=== PATIENT | male | born 1950 | race Caucasian/White ===

== ENCOUNTER 2017-07-06 08:59 | Day surgery (SDC) | payer OTHER ==
[2017-07-06 09:19] VITALS: BMI 29.8
--- NOTE | 2017-07-06 09:39 | PDOC ---
Attending Attestation - HPI HPI: 07/06/17 09:51 Patient is a 66 year old male with PMHx of, who presents to the ED with acute onset of lower abdominal pain. Patient states he has had episodes like this in the past but it was never this bad. His states his pain is non-radiating. He states he feels nauseous but says he did not vomit. He never saw a GI doctor. And states that he never had a colonoscopy before. He states his last bowel movement was yesterday and was normal. He denies recent travel. He denies recent fever, chills, back pain. He denies recent dysuria, urgency, frequency. He denies recent vomit, diarrhea, or constipation. - Physicial Exam PE: 07/06/17 09:52 GENERAL: Awake, alert, and fully oriented, in no acute distress HEAD: No signs of trauma EYES: PERRLA, EOMI, sclera anicteric, conjunctiva clear ENT: Auricles normal inspection, hearing grossly normal, nares patent, oropharynx clear without exudates. Moist mucosa NECK: Normal ROM, supple, no lymphadenopathy, JVD, or masses LUNGS: Breath sounds equal, clear to auscultation bilaterally. No wheezes, and no crackles HEART: Tachycardic. no murmurs, rubs or gallops ABDOMEN: Soft, RLQ, LLQ, suprapublic, periumbilical tenderness. No guarding, no rebound. No masses EXTREMITIES: No lower extremity edema.Normal range of motion, No clubbing or cyanosis. No cords, erythema, or tenderness NEUROLOGICAL: Cranial nerves II through XII grossly intact. Normal speech, normal gait SKIN: Warm, Dry, normal turgor, no rashes or lesions noted. <Kalina Boone - Last Filed: 07/06/17 09:51> - Resident Resident Name: Jovanny Mcclellan - ED Attending Attestation I have performed the following: I have examined & evaluated the patient, The case was reviewed & discussed with the resident, I agree w/resident's findings & plan, Exceptions are as noted - Medical Decision Making 07/06/17 09:39 I, Dr. Scarlett Albarran, DO, attest that this document has been prepared under my direction and personally reviewed by me in its entirety. I further attest, that it accurately reflects all work, treatment, procedures and medical decision -making performed by me. 07/06/17 10:24 a/p: 66yo male with lower abd pain -poss colitis vs diverticulitis vs uti vs obstruction -will check labs, ua, ct abd/pelvis -ivf hydration -pain and nausea control -will monitor and reassess 07/06/17 15:33 inguinal hernia palpated and easily reduced when laying flat case discussed with DR. Corcoran who will be down to eval the patient. 07/06/17 16:41 dr. corcoran accepts the patient to service. pending OR <Scarlett Albarran - Last Filed: 07/06/17 16:41>
[2017-07-06] MEDS ORDERED: SODIUM CHLORIDE 0.9% 1000 ML INFUS.BAG IV ONE ×2 (09:41→15:25)
[2017-07-06] MEDS ORDERED: morphine CARPU-JECT 4 MG/1 ML DISP.SYRIN IVPUSH ONE ×2 (09:41→13:43)
[2017-07-06] MEDS ORDERED: ONDANSETRON 4 MG/2 ML VIAL IVPUSH ONE (09:41)
--- NOTE | 2017-07-06 10:24 | PDOC ---
History of Present Illness <Scarlett Albarran - Last Filed: 07/06/17 16:51> - History of Present Illness Initial Comments: Patient is a 66 year old male with no PMHx presenting to the ED with lower abdominal pain. He states that he has had these pains in the past with the initial episode approximately 1.5 years prior and presenting every month or so but this episode is worse. He was never evaluated by a GI physician or received a colonoscopy. Describes the pain as lower pelvic bilaterally and non radiating without prandial relationship. He did have nausea but says he did not vomit. He denies recent travel, fever, chills, back pain, urinary symptoms, vomitting, diarrhea, or constipation. 07/06/17 12:08 <Jovanny Mcclellan - Last Filed: 07/06/17 18:35> - General Chief Complaint: Pain Stated Complaint: ABD PAIN Time Seen by Provider: 07/06/17 09:29 Past History <Scarlett Albarran - Last Filed: 07/06/17 16:51> - Past Medical History COPD: No Disorders: Yes (CYST KIDNEY) HTN: Yes - Suicide/Smoking/Psychosocial Hx Smoking History: Former smoker Have you smoked in the past 12 months: No If you are a former smoker, when did you quit?: 21YRS AGO Information on smoking cessation initiated: No Hx Alcohol Use: Yes (RARE) Drug/Substance Use Hx: No Substance Use Type: Alcohol <Jovanny Mcclellan - Last Filed: 07/06/17 18:35> - Past Medical History Allergies/Adverse Reactions: Allergies Allergy/AdvReac Type Severity Reaction Status Date / Time No Known Drug Allergies Allergy Verified 07/06/17 09:14 Home Medications: Ambulatory Orders NK [No Known Home Medication] 02/26/15 Review of Systems - Review of Systems Constitutional: No: Chills, Fever HEENTM: No: Blurred Vision Respiratory: No: Cough, Shortness of Breath, Wheezing, Productive cough Cardiac (ROS): No: Chest Pain ABD/GI: No: Constipated, Diarrhea, Nausea, Vomiting : No: Dysuria, Discharge, Hematuria Musculoskeletal: No: Back Pain Integumentary: No: Change in Color, Erythema, Flushing, Lesions, Lumps Neurological: No: Headache, Numbness, Paresthesia, Seizure <VyTimjamison - Last Filed: 07/06/17 18:35> *Physical Exam - Vital Signs Last Vital Signs Temp Pulse Resp BP Pulse Ox 98.2 F 92 H 18 159/107 100 07/06/17 09:15 07/06/17 09:15 07/06/17 09:15 07/06/17 09:15 07/06/17 09:15 <Scarlett Albarran - Last Filed: 07/06/17 16:51> - Vital Signs Last Vital Signs Temp Pulse Resp BP Pulse Ox 98.2 F 92 H 18 159/107 100 07/06/17 09:15 07/06/17 09:15 07/06/17 09:15 07/06/17 09:15 07/06/17 09:15 - Physical Exam General Appearance: Yes: Nourished, Appropriately Dressed, Apparent Distress, Mild Distress HEENT: positive: EOMI, RENY, Normal ENT Inspection, Normal Voice Neck: positive: Trachea midline, Normal Thyroid, Supple. negative: Tender, Rigid Respiratory/Chest: positive: Lungs Clear, Normal Breath Sounds. negative: Chest Tender, Respiratory Distress Cardiovascular: positive: Regular Rhythm, Regular Rate, S1, S2. negative: Edema , JVD, Murmur Gastrointestinal/Abdominal: positive: Normal Bowel Sounds, Tender (diffuse tenderness across lower abdomen ), Flat, Soft. 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 NML intact, Fully Oriented, Alert, Normal Mood/ Affect, Normal Response, Motor Strength 5/5 <Jovanny Mcclellan - Last Filed: 07/06/17 18:35> ED Treatment Course - LABORATORY CBC & Chemistry Diagram: 07/06/17 10:27 07/06/17 10:10 - ADDITIONAL ORDERS Additional order review: Laboratory Results 07/06/17 07/06/17 07/06/17 12:29 10:10 10:10 PT with INR INR PTT (Actin FS) Sodium Potassium Chloride Carbon Dioxide Anion Gap BUN Creatinine Creat Clearance w eGFR Random Glucose Lactic Acid 1.1 Calcium Magnesium Cancelled Total Bilirubin AST ALT Alkaline Phosphatase Total Protein Albumin Lipase Cancelled Urine Color Straw Urine Appearance Clear Urine pH 7.0 Ur Specific [place] 1.010 Urine Protein Negative Urine Glucose (UA) Negative Urine Ketones Negative Urine Blood 1+ H Urine Nitrite Negative Urine Bilirubin Negative Urine Urobilinogen Negative Urine Mucus Rare 07/06/17 07/06/17 07/06/17 10:10 10:10 10:10 PT with INR 11.20 INR 0.99 PTT (Actin FS) 35.7 H Sodium 141 Potassium 4.3 Chloride 105 Carbon Dioxide 31 Anion Gap 5 L BUN 15 Creatinine 0.9 Creat Clearance w eGFR > 60 Random Glucose 109 H Lactic Acid Calcium 8.9 Magnesium 2.1 Total Bilirubin 0.7 AST 29 ALT 29 Alkaline Phosphatase 61 Total Protein 7.2 Albumin 3.9 Lipase 83 Urine Color Urine Appearance Urine pH Ur Specific [place] Urine Protein Urine Glucose (UA) Urine Ketones Urine Blood Urine Nitrite Urine Bilirubin Urine Urobilinogen Urine Mucus 07/06/17 07/06/17 10:27 10:10 RBC 6.49 H Cancelled MCV 66.0 L Cancelled MCHC 31.0 L Cancelled RDW 16.5 H Cancelled MPV 8.7 Cancelled Neutrophils % 87.5 H Cancelled Lymphocytes % 7.5 L Cancelled Monocytes % 4.1 Cancelled Eosinophils % 0.5 Cancelled Basophils % 0.4 Cancelled - RADIOLOGY Radiology Studies Ordered: Category Date Time Status ABDOMEN & PELVIS CT WITH CONTR [CT] Stat CT Scan 07/06/17 09:40 Completed - Medications Given in the ED: ED Medications Discontinued Medications Generic Name Dose Route Start Last Admin Trade Name Freq PRN Reason Stop Dose Admin Morphine Sulfate 4 mg 07/06/17 09:41 07/06/17 10:43 Morphine Injection - IVPUSH 07/06/17 09:42 4 mg ONCE ONE Administration Morphine Sulfate 4 mg 07/06/17 13:43 07/06/17 13:44 Morphine Injection - IVPUSH 07/06/17 13:44 4 mg ONCE ONE Administration Ondansetron HCl 4 mg 07/06/17 09:41 07/06/17 10:44 Zofran Injection IVPUSH 07/06/17 09:42 4 mg ONCE ONE Administration Sodium Chloride 1,000 ml 07/06/17 09:41 07/06/17 10:44 Normal Saline - IV 07/06/17 09:42 1,000 ml ONCE ONE Administration Sodium Chloride 1,000 ml 07/06/17 15:25 07/06/17 16:43 Normal Saline - IV 07/06/17 15:26 1,000 ml ONCE ONE Administration <Scarlett Albarran - Last Filed: 07/06/17 16:51> - LABORATORY CBC & Chemistry Diagram: 07/06/17 10:27 07/06/17 10:10 - ADDITIONAL ORDERS Additional order review: Laboratory Results 07/06/17 10:10 Magnesium Cancelled Lipase Cancelled <Jovanny Mcclellan - Last Filed: 07/06/17 18:35> Medical Decision Making - Medical Decision Making 66 year old male presenting with acute on chronic lower abdominal pain diffusely. Primary concern for diverticulosis vs. rectal malignancy. CT abdomen , pelvis demonstrating SBO with inguinal hernia as the lead point. Patient given morphine 4 x 2 with good relief of pain. Labs mostly WNL with the exception of a slight left shift and shift leukocytosis. We placed the patient in trendelenberg and reduced the inguinal hernia successfully. Dr. Corcoran evaluated that patient and agreed to take the patient to the OR today for surgical fixation of the hernia. patient signed out to Dr. Corcoran's care. 07/06/17 17:34 <Jovanny Mcclellan - Last Filed: 07/06/17 18:35> *DC/Admit/Observation/Transfer - Discharge Dispostion Admit: Yes <Scarlett Albarran - Last Filed: 07/06/17 16:51> - Discharge Dispostion Admit: Yes <Jovanny Mcclellan - Last Filed: 07/06/17 18:35> Diagnosis at time of Disposition: Partial small bowel obstruction Inguinal hernia Qualifiers: Obstruction and gangrene presence: with obstruction but without gangrene Laterality: unilateral Recurrence: not specified as recurrent Qualified Code(s) : K40.30 - Unilateral inguinal hernia, with obstruction, without gangrene, not specified as recurrent - Discharge Dispostion Condition at time of disposition: Fair
[2017-07-06] MEDS ORDERED: morphine SULFATE 4 MG/ML VIAL ONE ×2 (10:29→13:46)
[2017-07-06] MEDS ORDERED: ONDANSETRON *ODT* 4 MG TABLET ONE (10:30)
[2017-07-06 10:49] LABS: ALBUMIN 3.9 g/dl (3.4-5.0); ANION GAP 5 (8-16); BILIRUBIN,TOTAL 0.7 mg/dL (0.2-1.0); CALCIUM 8.9 mg/dL (8.5-10.1); CO2 31 mmol/L (21-32); CREATININE 0.9 mg/dL (0.7-1.3); GLUCOSE,RANDOM 109 mg/dL (74-106); SGPT/ALT 29 U/L (12-78); TOT PROT 7.2 g/dl (6.4-8.2)
[2017-07-06 10:50] LABS: ALK PHOS 61 U/L (45-117)
[2017-07-06 10:50] LABS: BASOPHIL 0.4 % (0-2.0); EOSINOPHIL 0.5 % (0-4.5); MCH 20.4 pg (25.7-33.7); MEAN PLT VOLUME 8.7 fl (7.5-11.1); NEUTROPHILS 87.5 % (42.8-82.8); PLATELET COUNT 193 K/MM3 (134-434); RDW 16.5 % (11.9-15.9); WHITE BLOOD COUNT 10.3 K/mm3 (4.0-10.0)
[2017-07-06 10:53] LABS: MAGNESIUM 2.1 mg/dL (1.8-2.4); SGOT/AST 29 U/L (15-37)
[2017-07-06 11:26] LABS: INR 0.99 (0.82-1.09); PROTHROMBIN TIME (PATIENT) 11.2 SEC (9.98-11.88)
[2017-07-06 11:56] LABS: HYPOCHROMIA 1+
[2017-07-06 11:57] LABS: ANISOCYTOSIS 1+
[2017-07-06 13:42] LABS: URINE APPEARANCE CLEAR; URINE BILIRUBIN NEGATIVE (NEGATIVE); URINE BLOOD 1+ (NEGATIVE); URINE COLOR STRAW; URINE GLUCOSE (UA) NEGATIVE (NEGATIVE); URINE KETONE NEGATIVE (NEGATIVE); URINE NITRITE NEGATIVE (NEGATIVE); URINE PROTEIN NEGATIVE (NEGATIVE); URINE UROBILINOGEN NEGATIVE mg/dL (0.2-1.0)
[2017-07-06 14:16] LABS: URINE MUCUS RARE; URINE RBC 3 /hpf (0-3)
[2017-07-06] MEDS ORDERED: LACTATED RINGERS SOLUTION 1,000 ML/1,000 ML INFUS.BAG IV SCH ×2 (15:30→17:15)
[2017-07-06] MEDS ORDERED: oxyCODONE HCL 5 MG TABLET PO PRN ×3 (17:08→22:09)
[2017-07-06] MEDS ORDERED: IBUPROFEN 600 MG TABLET (FP) PO PRN (17:08)
[2017-07-06] MEDS ORDERED: ACETAMINOPHEN 325 MG TABLET (FP) PO PRN ×2 (17:08→22:09)
[2017-07-06] MEDS ORDERED: IBUPROFEN 800 MG/8 ML IJ IVPB ONE (17:15)
[2017-07-06] MEDS ORDERED: fentaNYL CITRATE 250 MCG/5 ML VIAL ONE (17:17)
[2017-07-06] MEDS ORDERED: MIDAZOLAM HCL 2 MG/2 ML SINGLE DOSE VIAL ONE (17:17)
[2017-07-06] MEDS ORDERED: LIDOCAINE HCL/PF 2% SDV 5ML VIAL ONE (17:18)
[2017-07-06] MEDS ORDERED: PROPOFOL 20 ML ONE (17:18)
[2017-07-06] MEDS ORDERED: SUCCINYLCHOLINE CHLORIDE 200 MG/10 ML VIAL ONE (17:20)
[2017-07-06] MEDS ORDERED: ROCURONIUM BROMIDE 50 MG/5 ML VIAL ONE (17:21)
--- NOTE | 2017-07-06 17:26 | HP ---
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 It has gotten more frequent and more noticeable, especially in last few months. He works overnights, and Thursday morning it began hurting quite a bit, but he was better after sleeping in the afternoon. Up all night at work, and again was hurting on Thursday, then overnight last night it was so bad this morning he could barely stand it. He considered looking for a new PMD, but decided to come to hospital instead. He has never had colonoscopy. Last normal BM was yesterday. Nausea only from the pain but no vomiting. Last po was salad at 4pm yesterday and a few grapes and water at 5am. In ER, he is afebrile with normal wbc and labs. CT showed partial SBO with mild dilation of SB and transition at left inguinal hernia with SB loop in it. After supine exam by ER after that, hernia reduced nearly spontaneously per report. His pain is much better now, and he is no longer tender. History Source: Patient Limitations to Obtaining History: No Limitations - Past Medical History Cardiovascular: Yes: HTN (not on medication) Renal/: Yes: Other (had renal cyst percutaneously drained 2 yrs ago) Dermatology: Yes: Other (lipoma on back) - Past Surgical History Past Surgical History: No: Colonoscopy Additional Past Surgical History: perc renal cyst drainage 2014; nasal septum surgery - Smoking History Smoking history: Former smoker Have you smoked in the past 12 months: No If you are a former smoker, when did you quit?: 24YRS AGO - 1ppd or less x 13 yrs - Alcohol/Substance Use Hx Alcohol Use: Yes (RARE) History of Substance Use: reports: None - Social History ADL: Independent 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 denies: Difficult Swallowing, Hearing Loss, Throat Pain Neck: denies: Swollen Glands, Tenderness Cardiovascular: denies: Chest Pain, Palpitations Respiratory: denies: Cough, Hemoptysis Gastrointestinal: reports: Abdominal Pain (with hpi), Nausea (with pain only). denies: Constipation, Diarrhea, Vomiting Genitourinary: denies: Burning, Dysuria, Frequency, Testicular Pain Musculoskeletal: denies: Back Pain, Joint Pain, Muscle Pain Integumentary: reports: Lump (lipoma of central back). denies: Rash Neurological: reports: Headache (sometimes). denies: Dizziness, Unsteady Gait Psychiatric: denies: Anxiety, Depression Physical Examination Vital Signs: Vital Signs Temperature 98.1 F 07/06/17 17:13 Pulse Rate 90 07/06/17 17:13 Respiratory Rate 20 07/06/17 17:13 Blood Pressure 140/98 07/06/17 17:13 O2 Sat by Pulse Oximetry (%) 100 07/06/17 17:13 Constitutional: Yes: Well Nourished, No Distress, Calm, Obese Eyes: Yes: Conjunctiva Clear, EOM Intact HENT: Yes: Atraumatic, Normocephalic Neck: Yes: Supple, Trachea Midline Cardiovascular: Yes: Regular Rate and Rhythm. No: Murmur Respiratory: Yes: Regular, CTA Bilaterally Gastrointestinal: Yes: Normal Bowel Sounds, Soft, Abdomen, Obese, Hernia (left inguinal). No: Distention, Tenderness ...Rectal Exam: Yes: Deferred Renal/: No: CVA Tenderness - Left, CVA Tenderness - Right Musculoskeletal: Yes: Other (~10cm lipoma of central/left back). No: Joint Stiffness, Joint Swelling Extremities: No: Cool, Cyanosis Edema: No Peripheral Pulses WNL: Yes Integumentary: No: Jaundice, Rash Neurological: Yes: Alert, Oriented Psychiatric: Yes: Alert, Oriented Labs: CBC, BMP 07/06/17 10:27 07/06/17 10:10 INR, PTT INR 0.99 (0.82-1.09) 07/06/17 10:10 Urine Test Results Urine Color Straw 07/06/17 12:29 Urine Appearance Clear 07/06/17 12:29 Urine pH 7.0 (5.0-8.0) 07/06/17 12:29 Ur Specific [place] 1.010 (1.001-1.035) 07/06/17 12:29 Urine Protein Negative (NEGATIVE) 07/06/17 12:29 Urine Glucose (UA) Negative (NEGATIVE) 07/06/17 12:29 Urine Ketones Negative (NEGATIVE) 07/06/17 12:29 Urine Blood 1+ (NEGATIVE) H 07/06/17 12:29 Urine Nitrite Negative (NEGATIVE) 07/06/17 12:29 Urine Bilirubin Negative (NEGATIVE) 07/06/17 12: Urine Mucus Rare 07/06/17 12:29 Imaging - Results Cat Scan: Report Reviewed (left inguinal hernia with small bowel loop as transition point for partial SBO with mildly dilated SB proximal and decompressed distally, small ascites in abd/pelv, no free air), Image Reviewed Problem List - Problems (1) Inguinal hernia of left side with obstruction and without gangrene Assessment/Plan: Pt had PSBO but hernia has been reduced. Recommended repair prior to discharge. Discussed with patient risks, benefits and alternatives of left inguinal hernia repair with mesh, including but not limited to bleeding, infection, injury to adjacent structures, vessels or nerves, testicular ischemia/loss, mesh infection , hernia recurrence, numbness or chronic pain, ; alternatives include delayed or no surgery - risks of this include recurrent incarceration, strangulation of hernia contents, continued pain. Patient desires to proceed with operation - will take to OR for above. Informed consent signed for same. Will admit as satellite DVT prophylaxis pain meds prn anticipate d/c when ambulating, voiding, po pain meds and tolerating po caldolor preop periop Ancef Code(s): K40.30 - UNIL INGUINAL HERNIA, W OBST, W/O GANGR, NOT SPCF RECUR (2) Hypertension Code(s): I10 - ESSENTIAL (PRIMARY) HYPERTENSION Qualifiers: Hypertension type: essential hypertension Qualified Code(s): I10 - Essential (primary) hypertension
[2017-07-06] MEDS ORDERED: DESFLURANE GAS 240 ML BOTTLE IH ONE (17:45)
--- NOTE | 2017-07-06 17:50 | CONSULT ---
Consult - text type - Consultation Consultation Note: Pt seen and examined in ER. Admitted 23hr/sat for OR. See H&P for details. Nat THOMAS
[2017-07-06] MEDS ORDERED: HYDROmorphone HCL CARPU-JECT 1 MG/1 ML DISP.SYRIN IVPUSH PRN (17:55)
[2017-07-06] MEDS ORDERED: ONDANSETRON 4 MG/2 ML VIAL IVPUSH PRN ×2 (17:55→22:09)
[2017-07-06] MEDS ORDERED: LACTATED RINGERS SOLUTION 1,000 ML IV SCH (18:00)
[2017-07-06 18:08] LABS: URINE LEUK ESTERASE Negative (NEGATIVE)
[2017-07-06] MEDS ORDERED: ceFAZolin SODIUM 1 GM VIAL IVPB ONE (18:40)
[2017-07-06] MEDS ORDERED: DEXAMETHASONE SOD PHOSPHATE 4 MG/1 ML VIAL ONE (18:45)
[2017-07-06] MEDS ORDERED: ceFAZolin SODIUM 1 GM VIAL ONE (18:45)
[2017-07-06] MEDS ORDERED: ONDANSETRON 4 MG/2 ML VIAL ONE (18:45)
[2017-07-06] MEDS ORDERED: PHENYLEPHRINE HCL 10 MG/1 ML SINGLE DOSE VIAL ONE (18:48)
[2017-07-06] MEDS ORDERED: GLYCOPYRROLATE 0.2 MG/1 ML VIAL ONE (18:55)
[2017-07-06] MEDS ORDERED: NEOSTIGMINE METHYLSULFATE 0.5 MG/ML - 10 ML MDV ONE (18:55)
--- NOTE | 2017-07-06 21:56 | OP ---
Operative Note - Note: Operative Date: 07/06/17 Pre-Operative Diagnosis: left inguinal hernia with partial small bowel obstruction, reduced Operation: left inguinal hernia repair with mesh Findings: large indirect hernia sac with densely adherent cord lipoma and small area of floor weakness; lipoma amputated, sac ligated, both sent for pathology; 2x4" flat mesh used for repair with lateral space/slit for cord Implants: 2x4" Bard flat mesh with 3 corners trimmed Post-Operative Diagnosis: Same as Pre-op Surgeon: Kana Corcoran Mid Level Clinician: Norbert Kaur Anesthesiologist/SLOT FLOOR ATTENDANT: Kim Ibarra Anesthesia: General, Local (10ml 0.5% marcaine) Specimens Removed: cord lipoma, hernia sac to pathology Estimated Blood Loss (mls): 10 Fluid Volume Replaced (mls): 1,500 (crystalloid) Operative Report Dictated: Yes
[2017-07-06] MEDS: LACTATED RINGERS SOLUTION 1,000 ML/1,000 ML INFUS.BAG IV SCH (22:30)
[2017-07-07] MEDS ORDERED: IBUPROFEN 600 MG TABLET (FP) PO PRN ×3 (03:00→08:40)
[2017-07-07] MEDS: LACTATED RINGERS SOLUTION 1,000 ML/1,000 ML INFUS.BAG IV SCH (06:54)
[2017-07-07] MEDS ORDERED: ACETAMINOPHEN 325 MG TABLET (FP) PO PRN (08:40)
[2017-07-07] MEDS ORDERED: oxyCODONE HCL 5 MG TABLET PO PRN (08:41)
--- NOTE | 2017-07-07 11:20 | DS ---
Physical Examination Vital Signs: Vital Signs Temperature 98.7 F 07/07/17 06:39 Pulse Rate 100 H 07/07/17 06:39 Respiratory Rate 20 07/07/17 06:39 Blood Pressure 150/94 07/07/17 06:39 O2 Sat by Pulse Oximetry (%) 98 07/07/17 03:00 Constitutional: Yes: Well Nourished, No Distress, Calm Cardiovascular: Yes: Regular Rate and Rhythm. No: Murmur Respiratory: Yes: Regular, CTA Bilaterally Gastrointestinal: Yes: Normal Bowel Sounds, Soft, Abdomen, Obese, Tenderness ( incisional/LLQ - appropriate) Musculoskeletal: No: Joint Stiffness, Joint Swelling Extremities: No: Cool, Cyanosis Integumentary: No: Bruising, Rash Wound/Incision: Yes: Dressing Dry and Intact (L groin (ronny under)). No: Dressing Removed Neurological: Yes: Alert, Oriented Discharge Summary Reason For Visit: LEFT INGUINAL HERNIA with PSBO Current Active Problems Hypertension (Acute) Inguinal hernia of left side with obstruction and without gangrene (Acute) Partial small bowel obstruction (Acute) Procedures: Principal: left inguinal hernia repair with mesh Hospital Course: 66yoM with hypertension not on medication presented with progressively worsening L groin pain with associated bulge over last few days, which got very bad with abdominal pain within 12 hours of coming to ER. He had a mild leukocytosis, no fever, and CT showed a partial small bowel obstruction with transition point in left inguinal hernia containing a small bowel loop. The hernia was then easily reduced in the ER, and surgery consulted. He was taken to the OR for left inguinal hernia repair with mesh, with findings of a large chronic hernia sac with no contents and associated densely adherent cord lipoma , both of which were removed and sent to pathology. He got prophylactic Ancef immediately preop. Postop course has been unremarkable, and X-ray showed resolution of the obstruction with contrast all in the colon. He is ambulating, voiding, tolerating po, and requiring minimal po pain meds. He is discharged home with lifting restrictions to follow up in 1-2 weeks for staple removal. He is provided with several referrals as he is looking for a new primary care provider. He is also recommended to ask his PMD for a referral to GI for screening colonoscopy, which he has never had. Time spent on discharge 35 minutes. Condition: Good - Instructions Diet, Activity, Other Instructions: Postoperative instructions: You had a left inguinal hernia repair with mesh on 07/06/[address] Kana Corcoran of [facility]. Activity: Resume your usual activities gradually, but no heavy exertion or lifting more than 10-15 pounds for 4-6 weeks. Remove dressings 48 hours after surgery, if they are not already off. You may shower daily starting then, just pat the incision areas dry. Ronny should not need to be recovered with any dressings, unless you have been told otherwise. Eat lightly at first, but advance to your usual diet as tolerated. Pain: For pain, you may use and alternate Tylenol (acetaminophen) and/or ibuprofen every 6 hours each as needed; this means that you can take one OR the other at 3-hour intervals. If you are prescribed a Tylenol/narcotic combination for severe pain, use it instead of plain Tylenol as needed and switch back when your pain starts decreasing. Do not take more than 4000mg of acetaminophen in a day. Take medications as prescribed or indicated on the labeling. Follow-up: Call Dr. Corcoran's office at [phone] to make your postop appointment (Thursday 1-2 weeks after surgery). Clinic is held in the [facility] on the first floor of [facility]. Call the office if you have: * increasing pain not responsive to pain medication * fever of 101F or higher * vomiting * unusual or increasing bleeding or drainage from wounds * increasing redness or swelling at wound sites * inability to urinate Also, see your primary medical doctor within 1-2 weeks. Referrals: Brian Eaton MD [Staff Physician] - Lawrence Segura MD [Staff Physician] - Vishal Snow MD [Staff Physician] - Disposition: HOME - Home Medications Comprehensive Discharge Medication List: Ambulatory Orders Acetaminophen [Tylenol .Regular Strength -] 650 mg PO Q6H PRN tablet 07/07/17 Ibuprofen [Motrin -] 600 mg PO Q6H PRN tablet 07/07/17
[2017-07-07 12:27] VITALS: BP 167/100; PULSE 101; TEMP 998.1
--- NOTE | 2017-07-08 15:51 | PATH ---
Surgical Pathology Report Patient Name: NIRU DIAZ [facility]. Rec. #: [id number] /Age/Gender: 1950 (Age: 66) / M Account: [id number] Location: AMBULATORY SURG Taken: 07/06/2017 Received: 07/07/2017 Reported: 07/08/2017 Physicians: Kana Corcoran M.D. Specimen(s) Received A: LIPOMA OF CORD B: HERNIA SAC Clinical History Preoperative diagnosis: Left inguinal hernia with PSBO, reduced Postoperative diagnosis: Same Final Diagnosis A. SOFT TISSUE, LEFT INGUINAL, EXCISION: BENIGN ADIPOSE TISSUE CONSISTENT WITH CORD LIPOMA. B. SOFT TISSUE, LEFT INGUINAL, HERNIA REPAIR: FIBROMEMBRANOUS TISSUE CONSISTENT WITH HERNIA SAC. Electronically Signed Juan J Olmstead M.D. Gross Description A. Received in formalin labeled "cord lipoma," is a 6.0 x 4.2 x 1.5 cm aggregate of haywood fragments of fibromembranous tissue with abundant attached yellow, lobulated adipose tissue. Sheet Heater Helper sections are submitted in one cassette. B. Received in formalin labeled "hernia sac," is a 4.4 x 2.7 x 1.7 cm portion of miller-brown fibromembranous tissue with minimal attached fat, consistent with a hernia sac. A packaging sales representative section is submitted in one cassette. 07/07/201707/07/2017
--- NOTE | 2017-07-24 08:41 | OP ---
DATE OF OPERATION: 07/06/2017 PREOPERATIVE DIAGNOSIS: Left inguinal hernia (reduced) with partial small- bowel obstruction. POSTOPERATIVE DIAGNOSIS: Left indirect inguinal hernia (reduced) with partial small-bowel obstruction. PROCEDURE: Left inguinal hernia repair with mesh. SURGEON: Kana Corcoran MD ELECTRICAL LINE MECHANIC: Norbert Kaur MD ANESTHESIA: General endotracheal and local (10 mL of 0.5% Marcaine). ESTIMATED BLOOD LOSS: 10 mL FLUIDS: 1500 mL of crystalloid. SPECIMENS: Cord lipoma and hernia sac to Pathology. FINDINGS: A large indirect hernia sac with densely adherent cord lipoma and a small area of inguinal floor weakness. The lipoma was amputated and the sac ligated. Both were sent for pathology. A 2 x 4 inch Bard flat mesh was used for repair with a lateral space/slit for the cord. DISPOSITION: Stable and extubated to PACU. INDICATIONS FOR PROCEDURE: The patient is a 66-year-old male with borderline hypertension, not on medication, and a history of a renal cyst percutaneously drained, who has noticed intermittent left groin pain for the last 1-1.5 years and thought he might have a hernia. The discomfort has gotten more frequent and quite noticeable, especially in the last few months; and, over the last several days, it continued to be significantly bothersome into last night, when it became so bad that he could barely stand. He came to the emergency room with associated nausea but no vomiting, where he was afebrile with a normal white count and labs. A CT scan was done, showing partial small-bowel obstruction, with mild dilation of the small bowel and a transition at the left inguinal hernia with a small-bowel loop inside it. After this, on supine examination by the emergency room, the hernia reduced nearly spontaneously, and his pain improved significantly. He has also never had a colonoscopy. His pain and tenderness were no longer present on my exam. Risks, benefits, and alternatives of left inguinal hernia repair with mesh were discussed with the patient including, but not limited to, bleeding; infection; injury to adjacent structures, vessels, or nerves; testicular ischemia or loss; numbness or chronic pain; mesh infection; hernia recurrence, and ; alternatives including delayed or no surgery, with attendant risks of recurrent incarceration, strangulation of the hernia contents, and continued pain. The patient does desire to proceed with the operation. Informed consent was signed for the same, and he is now brought to the operating room for repair. OPERATIVE TECHNIQUE: The patient was brought to the operating room and laid supine on the operating table. Sequential compression devices were applied to bilateral lower extremities, and Ancef was given as preoperative antibiotic. After induction and intubation by Anesthesia, the patient's left groin and lower abdomen were clipped of hair, prepped and draped in sterile fashion. A short, oblique incision was made in the left groin area from the pubic tubercle in the direction of the anterior-superior iliac spine with a scalpel. This was carried into subcutaneous tissues with electrocautery, until the external oblique fascia was identified. This was cleared bluntly on its surface and had been opened at one spot with the cautery. It was then opened down through the external ring with Metzenbaum scissors and also for a short distance superiorly. The inside leaves of the external oblique fascia were cleared bluntly, revealing the inguinal ligament laterally and the lateral aspect of the rectus muscle medially. Blunt dissection was undertaken over the pubic tubercle until the cord structures, hernia, and what appeared to be probably a large cord lipoma were able to be lifted off the pubic tubercle and encircled with a Ariadne drain. Hemostasis was achieved throughout the case with electrocautery where needed. The vas deferens was palpated and carefully identified throughout the procedure and left intact. Dissection was then undertaken to identify the hernia sac. This was very chronically adherent to the surrounding structures, and once we had the hernia sac identified, we were able to elevate the hernia sac, grasp the edges between 2 clamps, and open it with Metzenbaum scissors. There were no abdominal contents coming up into the base of the hernia sac, but a fingertip did ensure that, in fact, this was the sac with entry through the internal ring into the peritoneal cavity. It then became apparent that there was a very large, very adherent cord lipoma adjacent to the sac, which was carefully from it with both blunt dissection and cautery until the cord lipoma itself could be completely and amputated. This was sent as a separate pathology specimen. Once we had removed the cord lipoma and the cord structures from the hernia sac itself, again ensuring that the spermatic cord and vas deferens were uninjured, the hernia sac was suture ligated with 0 Vicryl suture and amputated above the ligature. The amputated sac was then sent for a pathology specimen, and the stump reduced through the internal ring back into the abdominal cavity. There was a small area of mild weakness of the inguinal floor noted as well. A 2 x 4 inch flat mesh was then chosen for repair to reinforce the inguinal floor. Three corners were trimmed, and it was anchored with interrupted 2-0 Prolene sutures, first to the pubic tubercle and then secured laterally up the inguinal ligament, leaving space laterally for the cord to come through. Medially, it was secured to the lateral edge of the rectus muscle, with the superior tail of the mesh being tucked underneath the external oblique fascia. A very small slit over the cord was made with scissors to ensure adequate space for the cord to come through on the lateral side, the mesh having been secured above and below the cord. The field was then irrigated with saline solution and hemostasis assured. The leaves of the external oblique were closed over the repair, and the external oblique fascia was closed with a running 2-0 Vicryl suture from the superior aspect down to the level of the cord, re-creating the external ring. The subcutaneous tissues were then irrigated with saline solution and 3-0 Vicryl sutures used to reapproximate Meghan's fascia at several points. Local anesthetic was infiltrated into the incision and also used for an ilioinguinal block. One additional 3-0 Vicryl suture was taken at the mid-portion of the incision in the subcutaneous tissues, before the skin was reapproximated with diallo. A dressing of gauze and Tegaderm was placed over the incision. At the conclusion of the procedure, the testicles were both pulled down and noted to be clearly in the scrotum. Counts were correct at the end of the procedure. The patient was then awakened and extubated by Anesthesia, returned to a stretcher, and taken to the recovery room in stable condition, having tolerated the procedure well. Dr. Kaur was an essential development assistant throughout the procedure, facilitating exposure of the field, dissection of the cord structures, hernia sac, and cord lipoma, and closure of the incision. Sandra [id number] MTDFelicia
== END 2017-07-07 13:26 | disposition home or self-care (01) ==
LOC: JER 08:59 → JASUSAT 17:08 → JER 17:26 → J8W 22:59 → JASUSAT 07-07 13:26
PROVIDERS: ATTEND Surgery
PROC: 0YU60JZ Supplement Left Inguinal Region with Synthetic Substitute, Open Approach (ICD-10-PCS; principal; 2017-07-06 18:00)
DX: K40.30 Unilateral inguinal hernia, with obstruction, without gangrene, not specified as recurrent (principal); K56.690 Other partial intestinal obstruction
CPT/HCPCS: 36415; 74000-TC; 74177-TC; 80053; 81003; 81015; 83605; 83690; 83735; 85025; 85610; 85730; 88302-TC; 88304-TC; 94760; 99283-25

== ENCOUNTER 2018-12-21 06:12 | Emergency (ER) | payer MEDICARE, OTHER ==
[2018-12-21 06:41] VITALS: BMI 30.8
--- NOTE | 2018-12-21 07:11 | PDOC ---
History of Present Illness - General Chief Complaint: Pain Stated Complaint: PAIN,GROIN - History of Present Illness Initial Comments: 12/21/18 07:14 Mr. Lemus is a 68 yo male w/ pmh of HTN and L inguinal hernia repair 2016 (Dr. Corcoran) who presents for evaluation of L inguinal pain he reports is reminiscent of his previous hernia. Patient reports pain started approximately 1 week ago. He contacted surgeon's office and was told to present to ER if needed before able to get in contact with his surgeon. Patient denies any other symptoms at this time. The patient denies chest pain, shortness of breath, headache and dizziness. Denies fever, chills, nausea, vomit, diarrhea and constipation. Denies dysuria, frequency, urgency and hematuria. Past History - Past Medical History Allergies/Adverse Reactions: Allergies Allergy/AdvReac Type Severity Reaction Status Date / Time No Known Drug Allergies Allergy Verified 12/21/18 06:40 Home Medications: Ambulatory Orders Acetaminophen [Tylenol .Regular Strength -] 650 mg PO Q6H PRN tablet 07/07/17 Ibuprofen [Motrin -] 600 mg PO Q6H PRN tablet 07/07/17 COPD: No Disorders: Yes (CYST KIDNEY) HTN: Yes - Suicide/Smoking/Psychosocial Hx Smoking History: Never smoked Have you smoked in the past 12 months: No If you are a former smoker, when did you quit?: 21YRS AGO Information on smoking cessation initiated: No Hx Alcohol Use: No Drug/Substance Use Hx: No Substance Use Type: Alcohol Review of Systems - Review of Systems Comments:: 12/21/18 07:29 GENERAL/CONSTITUTIONAL: No fever or chills. No weakness. HEAD, EYES, EARS, NOSE AND THROAT: No change in vision. No ear pain or discharge. No sore throat. CARDIOVASCULAR: No chest pain or shortness of breath RESPIRATORY: No cough, wheezing, or hemoptysis. GASTROINTESTINAL: No nausea, vomiting, diarrhea or constipation. GENITOURINARY: +L inguinal pain worsened with bending, sitting, or any flexure. No dysuria, frequency, or change in urination. MUSCULOSKELETAL: No joint or muscle swelling or pain. No neck or back pain. SKIN: No rash NEUROLOGIC: No headache, vertigo, loss of consciousness, or change in strength/ sensation. ENDOCRINE: No increased thirst. No abnormal weight change HEMATOLOGIC/LYMPHATIC: No anemia, easy bleeding, or history of blood clots. ALLERGIC/IMMUNOLOGIC: No hives or skin allergy. *Physical Exam - Vital Signs Last Vital Signs Temp Pulse Resp BP Pulse Ox 98.1 F 66 19 132/90 100 12/21/18 06:15 12/21/18 06:15 12/21/18 06:15 12/21/18 06:15 12/21/18 06:15 - Physical Exam Comments: 12/21/18 07:30 GENERAL: Awake, alert, and fully oriented, in no acute distress HEAD: No signs of trauma, normocephalic, atraumatic EYES: PERRLA, EOMI, sclera anicteric, conjunctiva clear ENT: Auricles normal inspection, hearing grossly normal, nares patent, oropharynx clear without exudates. Moist mucosa NECK: Normal ROM, supple, no lymphadenopathy, JVD, or masses LUNGS: No distress, speaks full sentences, clear to auscultation bilaterally HEART: Regular rate and rhythm, normal S1 and S2, no murmurs, rubs or gallops, peripheral pulses normal and equal bilaterally. ABDOMEN: Soft, nontender, normoactive bowel sounds. No guarding, no rebound. No masses EXTREMITIES: Normal inspection, Normal range of motion, no edema. No clubbing or cyanosis. NEUROLOGICAL: Cranial nerves II through XII grossly intact. Normal speech, normal gait, no focal sensorimotor deficits SKIN: Warm, Dry, normal turgor, no rashes or lesions noted. : Pain noted w/ palpation of L inguinal region. Unable to appreciate discrete hernia. ED Treatment Course - LABORATORY CBC & Chemistry Diagram: 12/21/18 07:30 12/21/18 07:30 Medical Decision Making - Medical Decision Making 12/21/18 07:54 Mr. Lemus is a 68 yo male w/ pmh as described who presents for evaluation of symptoms concerning for inguinal hernia vs. MSK pain vs. other urologic process. Patient will be evaluated with basic labs to r/o infection or electrolyte abnormality and CT Abdomen/pelvis with UA. 12/21/18 09:51 CT negative. Labs grossly wnl as below. Patient discussed with surgeon's group who will follow-up outpatient. No concern for acute process at this time. Discharging to home. Laboratory Results - last 24 hr 12/21/18 12/21/18 12/21/18 07:30 07:30 08:06 WBC 5.5 RBC 5.69 H Hgb 11.8 Hct 37.0 MCV 65.1 L MCH 20.8 L MCHC 31.9 L RDW 16.4 H Plt Count 177 MPV 8.4 Absolute Neuts (auto) 4.2 Neutrophils % 76.7 Lymphocytes % 16.8 D Monocytes % 4.5 Eosinophils % 1.5 D Basophils % 0.5 Nucleated RBC % 0 Sodium 142 Potassium 3.7 Chloride 108 H Carbon Dioxide 29 Anion Gap 4 L BUN 15 Creatinine 0.9 Creat Clearance w eGFR 84.43 Random Glucose 89 Calcium 8.5 Total Bilirubin 0.6 AST 16 ALT 21 Alkaline Phosphatase 57 Total Protein 6.6 Albumin 3.4 Urine Color Yellow Urine Appearance Clear Urine pH 6.0 Ur Specific [place] 1.015 Urine Protein Negative Urine Glucose (UA) Negative Urine Ketones Negative Urine Blood Trace Urine Nitrite Negative Urine Bilirubin Negative Urine Urobilinogen 0.2 Ur Leukocyte Esterase Negative Urine WBC (Auto) 0 Urine RBC (Auto) 3 Urine Casts (Auto) 1 U Epithel Cells (Auto) 0.2 Urine Bacteria (Auto) 0.2 *DC/Admit/Observation/Transfer Diagnosis at time of Disposition: Pelvic pain in male - Discharge Dispostion Disposition: HOME Condition at time of disposition: Fair - Referrals Referrals: Brian Eaton MD [Primary Care Provider] - Norbert Kaur MD [Staff Physician] - - Patient Instructions Printed Discharge Instructions: DI for Pelvic Pain Additional Instructions: You were evaluated today in the ER for your pain. We performed laboratory analysis as well as CT evaluation with no concerning findings. We also contacted your surgeon group who request you call for an appointment at . Please follow-up as discussed tomorrow. You may take over the counter motrin or tylenol per package instructions for pain control as needed. Return to ER if any fever, chills, increase in pain, or other concerning symptoms. - Post Discharge Activity
[2018-12-21 08:02] LABS: BASO % 0.5 % (0-2.0); EOS % 1.5 % (0-4.5); HEMOGLOBIN 11.8 GM/dL (11.7-16.9); LYMPH % 16.8 % (8-40); MCH 20.8 pg (25.7-33.7); MCHC 31.9 g/dl (32.0-35.9); MEAN CELL VOLUME 65.1 fl (80-96); MEAN PLT VOLUME 8.4 fl (7.5-11.1); MONO % 4.5 % (3.8-10.2); NEUT % 76.7 % (42.8-82.8); PLATELET COUNT 177 K/MM3 (134-434); RBC 5.69 M/mm3 (4.00-5.60); RDW 16.4 % (11.9-15.9); WHITE BLOOD COUNT 5.5 K/mm3 (4.0-10.0)
[2018-12-21 08:04] LABS: ALBUMIN 3.4 g/dl (3.4-5.0); ALK PHOS 57 U/L (45-117); ANION GAP 4 MMOL/L (8-16); BILIRUBIN,TOTAL 0.6 mg/dL (0.2-1); BLOOD UREA NITROGEN 15 mg/dL (7-18); CALCIUM 8.5 mg/dL (8.5-10.1); CHLORIDE 108 mmol/L (98-107); CO2 29 mmol/L (21-32); CREATININE 0.9 mg/dL (0.55-1.3); GLUCOSE,RANDOM 89 mg/dL (74-106); POTASSIUM 3.7 mmol/L (3.5-5.1); SGOT/AST 16 U/L (15-37); SGPT/ALT 21 U/L (13-61); SODIUM 142 mmol/L (136-145); TOT PROT 6.6 g/dl (6.4-8.2)
[2018-12-21 08:28] LABS: EPI CELLS 0.2 /HPF (0-5/HPF); URINE APPEARANCE CLEAR; URINE BACTERIA 0.2 /hpf (NEGATIVE); URINE BILIRUBIN NEGATIVE (NEGATIVE); URINE CASTS 1 /lpf (0-8); URINE COLOR YELLOW; URINE GLUCOSE (UA) NEGATIVE (NEGATIVE); URINE KETONE NEGATIVE (NEGATIVE); URINE LEUK ESTERASE NEGATIVE (NEGATIVE); URINE NITRITE NEGATIVE (NEGATIVE); URINE PROTEIN NEGATIVE (NEGATIVE); URINE RBC 3 /hpf (0-4); URINE UROBILINOGEN 0.2 mg/dL (0.2-1.0); URINE WBC 0 /hpf (0-5)
--- NOTE | 2018-12-21 09:02 | PDOC ---
Attending Attestation - Resident Resident Name: Justo Macias - ED Attending Attestation I have performed the following: I have examined & evaluated the patient, The case was reviewed & discussed with the resident, I agree w/resident's findings & plan, Exceptions are as noted - HPI HPI: 12/21/18 09:00 68 M with h/o HTN, L inguinal hernia repair 2017, presenting to ED with L groin pain x 2 weeks. Pt states the pain has progressively worsened. Feels like a pulling sensation in his L groin that is worse with sitting and bending over. Denies feeling any masses or protrusions. Denies N/V. Denies constipation. Denies dysuria. Denies flank pain. States that this pain is similar to the pain he had around the time of his hernia surgery. - Physicial Exam PE: 12/21/18 09:01 "GENERAL: Awake, alert, and fully oriented, in no acute distress. HEAD: No signs of trauma EYES: PERRLA, EOMI, sclera anicteric, conjunctiva clear ENT: Auricles normal inspection, hearing grossly normal, nares patent, oropharynx clear without exudates. Moist mucosa NECK: Nontender, no stepoffs, Normal ROM, supple, no lymphadenopathy, JVD, or masses LUNGS: Breath sounds equal, clear to auscultation bilaterally. No wheezes, and no crackles HEART: Regular rate and rhythm, normal S1 and S2, no murmurs, rubs or gallops ABDOMEN: Soft, nontender, normoactive bowel sounds. No guarding, no rebound. No masses EXTREMITIES: Normal range of motion, no edema. No clubbing or cyanosis. No cords, erythema, or tenderness NEUROLOGICAL: Cranial nerves II through XII intact. 5/5 strength and sensation in all extremities, Normal speech, normal gait, normal cerebellar function SKIN: Warm, Dry, normal turgor, no rashes or lesions noted. : no palpable hernias, normal scrotum, no scrotal tenderness - Medical Decision Making 12/21/18 09:01 68 M with L groin pain. Has had prior L inguinal hernia mesh repair 2 years ago. - Labs, UA - CTAP Labs wnl CT shows normal post-op changes Discussed results with Dr. Kaur, environmental planning engineer for Dr. Sagastume, who recommends outpt f/u Pt is well appearing, with normal vitals. Clinically stable for DC at this time. I discussed the physical exam findings, ancillary test results and final diagnoses with the patient. I answered all of the patient's questions. The patient was satisfied with the care received and felt comfortable with the discharge plan and treatment plan. The patient agrees to follow up with the primary care physician within 24-72 hours.
[2018-12-21 10:25] VITALS: BP 128/89; PULSE 65; TEMP 97.8
[2018-12-21 11:58] LABS: ANISOCYTOSIS 2+; MACROCYTOSIS 0; OVALOCYTE 1+; PLATELET ESTIMATE NORMAL
== END 2018-12-21 10:25 | disposition home or self-care (01) ==
LOC: JER 06:12
DX: R10.32 Left lower quadrant pain (principal); I10 Essential (primary) hypertension
CPT/HCPCS: 36415; 74177-TC; 80053; 81003; 85025; 99282-25

== ENCOUNTER 2022-10-23 07:28 | Emergency (ER) | payer MEDICARE, OTHER ==
[2022-10-23 07:41] VITALS: BP 144/94; PULSE 74; RESP 18; TEMP 98.2
[2022-10-23 08:22] LABS: HEMATOCRIT 39.8 % (35.4-49); HEMOGLOBIN 13.1 G/dL (11.7-16.9); MCHC 32.9 g/dl (32.0-35.9); MEAN CELL VOLUME 66.7 fl (80-96); MEAN PLT VOLUME 8.8 fl (7.5-11.1); PLATELET COUNT 206.5 10^3/uL (134-434); RBC 5.96 10^6/uL (4.00-5.60); RDW 19.1 % (11.9-15.9); WHITE BLOOD COUNT 7.5 10^3/uL (4.0-10.8)
[2022-10-23 08:26] LABS: PLATELET ESTIMATE ADEQUATE
[2022-10-23 08:29] LABS: BILIRUBIN,TOTAL 0.9 mg/dl (0.2-1); CALCIUM 9.2 mg/dl (8.5-10)
[2022-10-23] MEDS ORDERED: predniSONE 20 MG TABLET (UD) PO ONE (08:44)
[2022-10-23] MEDS ORDERED: ACETAMINOPHEN 325 MG TABLET (FP) PO ONE (08:44)
[2022-10-23] MEDS ORDERED: valACYclovir HCL 1000 MG TABLET PO ONE (08:44)
[2022-10-23] MEDS ORDERED: valACYclovir HCL 500 MG TABLET (FP) ONE (08:54)
[2022-10-23] MEDS ORDERED: predniSONE 20 MG TABLET (UD) ONE (08:54)
[2022-10-23] MEDS ORDERED: ACETAMINOPHEN 325 MG TABLET (FP) ONE (08:54)
== END 2022-10-23 10:34 | disposition home or self-care (01) ==
LOC: FER 07:28
DX: N28.1 Cyst of kidney, acquired (principal); B02.9 Zoster without complications; R31.9 Hematuria, unspecified
CPT/HCPCS: 36415; 74176-TC; 80053; 81003; 81015; 85027; 99284-25

== ENCOUNTER 2022-12-16 03:40 | Day surgery (SDC) | payer MEDICARE, OTHER ==
[2022-12-15 08:58] VITALS: BMI 29.8
[2022-12-16 06:19] VITALS: RESP 18
[2022-12-16] MEDS ORDERED: PROPOFOL 20 ML ONE (07:31)
[2022-12-16] MEDS ORDERED: MIDAZOLAM HCL 2 MG/2 ML SINGLE DOSE VIAL ONE (07:31)
[2022-12-16] MEDS ORDERED: KETOROLAC TROMETHAMINE 30 MG/1 ML VIAL ONE (07:31)
[2022-12-16] MEDS ORDERED: ceFAZolin SODIUM 1 GM VIAL ONE (07:46)
[2022-12-16] MEDS ORDERED: ceFAZolin SODIUM 1 GM VIAL IVPB ONE (07:50)
[2022-12-16 09:42] VITALS: BP 127/74; PULSE 54; TEMP 98.7
== END 2022-12-16 09:55 | disposition home or self-care (01) ==
LOC: JASU-SURG 03:40
PROVIDERS: ATTEND Urology
PROC: 0TF3XZZ Fragmentation in Right Kidney Pelvis, External Approach (ICD-10-PCS; principal; 2022-12-16 07:30)
DX: N20.0 Calculus of kidney (principal)